=== PATIENT | male | born 1960 | race Caucasian/White ===

== ENCOUNTER 2023-06-30 01:36 | Day surgery (SDC) | payer BC, SELFPAY ==
[2023-06-20 13:19] VITALS: BMI 32.5
[2023-06-30 07:31] VITALS: BP 156/84; PULSE 63; RESP 18; TEMP 36.4; O2SAT 97
[2023-06-30] MEDS: LACTATED RINGERS 1,000 ML 150 ML IV CONT (07:32)
--- NOTE | 2023-06-30 08:13 | P.PNAN_ITS ---
Anes - Initial Pre Proc Eval Procedure: Operation Date: 06/30/23 08:45 Proposed Procedures p Screening Colonoscopy - Xiang Escalona MD Date/Time: 06/30/23 08:13 Surgeon: Xiang Escalona MD Pre Op Diagnosis: neoplasm screening Patient Data Age: 62 Gender: M Height: 1.75 m Weight: 109 kg Last Vital Signs Temp 97.5 F L 06/30/23 07:31 Pulse 63 06/30/23 07:31 Resp 18 06/30/23 07:31 BP 156/84 H 06/30/23 07:31 Pulse Ox 97 06/30/23 07:31 O2 Del Method Room Air 06/30/23 07:31 Allergies Allergy/AdvReac Type Severity Reaction Status Date / Time shrimp Allergy Other Verified 06/30/23 07:30 Home Medications Medication Instructions Recorded Confirmed Type levothyroxine 50 mcg tablet 50 mcg PO DAILY 06/20/23 06/30/23 History mecobalamin (vitamin B12) 2,500 2,500 mcg PO DAILY 06/20/23 06/30/23 History mcg chewable tablet multivitamin with minerals-folic 1 tablet PO DAILY 06/20/23 06/30/23 History acid 0.4 mg tablet omega-3 fatty acids-vitamin E 1 cap PO DAILY 06/20/23 06/30/23 History 1,000 mg capsule simvastatin 40 mg tablet 40 mg PO DAILY 06/20/23 06/30/23 History Patient hx anesthesia problems: none Family hx anesthesia problems: none Results Review: All pre-operative results and documents have been reviewed as part of the pre- operative evaluation. PMFSH Social History Social History Smoking status: Never smoker Alcohol intake: current Drinks per week: 5 Substance use type: does not use Living arrangements: with family Spiritual care concerns: No Anes - Eval Final PreProcedure Day of Procedure 06/30/23 08:13 Patient weight: obese Heart: regular rate and rhythm Lungs: clear to auscultation Airway: Mallampati scale class II Neurological: alert and oriented Last oral intake: >/= 8 hours ASA classification: III Emergent: no Anesthetic plan: proceed Anesthesia type and monitoring: general GIVS and standard monitoring Results Review: All pre-operative results and documents have been reviewed as part of the pre- operative evaluation. Informed Consent: The patient's anesthetic plan and its attendant risks and benefits were discussed with the patient/family/POA. Questions were solicited and answers provided to the satisfaction of the patient/family/POA.
--- NOTE | 2023-06-30 08:15 | PM.HPGS ---
History of Present Illness History of Present Illness Consent: Risks, benefits, and alternatives have been discussed and questions answered. Patient agrees to proceed with procedure. Chief complaint: neoplasm screening Narrative: Nakul Mina is a 62 year old male here for screening colonoscopy, last one 11 years ago Review of Systems Constitutional: Constitutional: Denies headache(s) and Denies weakness Eyes: Eyes: Denies blurry vision ENT: Reports Normal hearing present, Denies headache(s) and Denies neck pain Cardiovascular: Cardiovascular: Denies chest pain and Denies dyspnea Respiratory: Respiratory: Denies dyspnea Gastrointestinal: Gastrointestinal: Reports no additional gastrointestinal complaints Genitourinary: Genitourinary: Denies dysuria Musculoskeletal: Musculoskeletal: Denies neck pain Integumentary/Breasts: Skin/Breast: Denies dry skin Neurologic: Reports Normal hearing present, Denies headache(s) and Denies weakness Psychiatric: Psychiatric: Denies anxiety Endocrine: Endocrine: Denies change in body appearance Hematologic/Lymphatic: Hematologic/Lymphatic: Denies easy bleeding Allergic/Immunologic: Allergic/Immunologic: Denies urticaria PMFSH Past Medical History Medical History (Updated 06/30/23 @ 08:16 by Xiang Escalona MD) Colon cancer screening Social History Social History Smoking status: Never smoker Alcohol intake: current Drinks per week: 5 Substance use type: does not use Living arrangements: with family Spiritual care concerns: No Meds Home Medications and Allergies Home Medications Medication Instructions Recorded Confirmed Type levothyroxine 50 mcg tablet 50 mcg PO DAILY 06/20/23 06/30/23 History mecobalamin (vitamin B12) 2,500 2,500 mcg PO DAILY 06/20/23 06/30/23 History mcg chewable tablet multivitamin with minerals-folic 1 tablet PO DAILY 06/20/23 06/30/23 History acid 0.4 mg tablet omega-3 fatty acids-vitamin E 1 cap PO DAILY 06/20/23 06/30/23 History 1,000 mg capsule simvastatin 40 mg tablet 40 mg PO DAILY 06/20/23 06/30/23 History Allergies Allergy/AdvReac Type Severity Reaction Status Date / Time shrimp Allergy Other Verified 06/30/23 07:30 Vital Signs Vital Signs - 24 hr 06/30/23 07:31 Temperature 97.5 F L Pulse Rate 63 Respiratory Rate 18 Blood Pressure 156/84 H Pulse Oximetry 97 Oxygen Delivery Room Air Exam Const: General: comfortable and no acute distress HENMT: Face/Nose/Sinus: Normal nares present Eyes: General: appearance normal, both eyes and all related structures Neck: Neck: no JVD Resp: Auscultation: clear to auscultation bilaterally Cardio: Rate: regular rate Rhythm: regular rhythm GI: Inspection: non-distended GI Palp: Yes Soft to palpation Skin: General skin exam: normal color Neuro: General: gait normal Speech: normal speech Extrem: General: normal to inspection Psych: Mental Status: mental status grossly normal Assessment and Plan Assessment and plan (1) Colon cancer screening: Code(s): Z12.11 - Encounter for screening for malignant neoplasm of colon Status: Acute Assessment and Plan: colonoscopy
[2023-06-30 08:34] VITALS: BP 101/67; PULSE 69; RESP 23; O2SAT 97
[2023-06-30 08:44] VITALS: BP 121/81; PULSE 71; RESP 19; O2SAT 100
[2023-06-30 08:54] VITALS: BP 124/80; PULSE 62; RESP 15; O2SAT 97
== END 2023-06-30 08:57 | disposition home or self-care (01) ==
PROVIDERS: PCP Family Medicine; Visit Provider Internal Medicine Gastroenterology
PROC: 0DJD8ZZ Inspection of Lower Intestinal Tract, Via Natural or Artificial Opening Endoscopic (ICD-10-PCS; CPT 45378; principal; 2023-06-30 08:45)
DX: Z12.11 Encounter for screening for malignant neoplasm of colon (principal); D12.5 Benign neoplasm of sigmoid colon; D12.8 Benign neoplasm of rectum; K64.8 Other hemorrhoids; E66.9 Obesity, unspecified; Z68.35 Body mass index [BMI] 35.0-35.9, adult
CPT/HCPCS: 45380; 45385; 88305; J2704; J7120